=== PATIENT | male | born 1975 | race Caucasian/White ===

== ENCOUNTER 2023-03-01 19:21 | Inpatient (IN) | payer MEDICAID ==
[~2023-03-01] VITALS: Ht 188 cm; Wt 68.7 kg
[2023-03-01] MEDS ORDERED: HALOPERIDOL 5 MG TABLET PO PRN (20:00)
[2023-03-01] MEDS ORDERED: LORazepam 2 MG TABLET PO PRN (20:00)
[2023-03-01 23:42] VITALS: BP 98/62
[2023-03-02 08:01] LABS: HEMOGLOBIN A1C 5.4 % (3.8-5.6)
[2023-03-02 08:11] LABS: CHOL/HDL RATIO 2.7 (4.2-7.3)
[2023-03-02 08:19] VITALS: BP 102/66
[2023-03-02] MEDS ORDERED: LOPERAMIDE HCL 2 MG CAPSULE PO PRN (10:15)
[2023-03-02] MEDS ORDERED: ACETAMINOPHEN 325 MG TABLET PO PRN (10:15)
[2023-03-02] MEDS ORDERED: PETROLATUM,WHITE 28 GM JELLY TP PRN (10:15)
[2023-03-02] MEDS ORDERED: IBUPROFEN 400 MG TABLET PO PRN (10:15)
[2023-03-02] MEDS ORDERED: ONDANSETRON HCL 4 MG TABLET PO PRN (10:15)
[2023-03-02] MEDS ORDERED: CloNIDine HCL 0.1 MG TABLET PO PRN (10:15)
[2023-03-02] MEDS ORDERED: ALBUTEROL SULFATE HFA 90 MCG/PUFF 8 GM INHALER IH PRN (10:15)
[2023-03-02] MEDS ORDERED: NICOTINE 14 MG/24 HOUR PATCH TD PRN (10:15)
[2023-03-02] MEDS ORDERED: DOCUSATE SODIUM 100 MG CAPSULE PO PRN (10:15)
[2023-03-02] MEDS ORDERED: GuaiFENesin/D-METHORPHAN [SUGAR-FREE] 200-20MG/10 ML SYRUP UDCUP PO PRN (10:15)
[2023-03-02] MEDS ORDERED: MAGNESIUM HYDROXIDE SUSPENSION 30 ML UDCUP PO PRN (10:15)
[2023-03-02] MEDS ORDERED: MAG HYDROX/AL HYDROX/SIMETH ES 30 ML SUSPENSION UDCUP PO PRN (10:15)
[2023-03-02] MEDS: METHADONE HCL 10 MG TABLET PO SCH (12:32)
[2023-03-02] MEDS: ARIPiprazole 5 MG TABLET PO SCH (12:32)
[2023-03-02] MEDS: SERTRALINE HCL 50 MG TABLET PO SCH (12:32)
[2023-03-02 20:09] VITALS: BP 106/69
[2023-03-03 08:23] VITALS: BP 114/68
[2023-03-03] MEDS: SERTRALINE HCL 50 MG TABLET PO SCH (08:26)
[2023-03-03] MEDS: ARIPiprazole 5 MG TABLET PO SCH (08:26)
[2023-03-03] MEDS: METHADONE HCL 10 MG TABLET PO SCH (08:26)
[2023-03-03 20:40] VITALS: BP 113/67
[2023-03-04 08:30] VITALS: BP 104/69
[2023-03-04] MEDS: METHADONE HCL 10 MG TABLET PO SCH (08:31)
[2023-03-04] MEDS: ARIPiprazole 5 MG TABLET PO SCH (08:31)
[2023-03-04] MEDS: SERTRALINE HCL 50 MG TABLET PO SCH (08:31)
[2023-03-04 20:39] VITALS: BP 106/73
[2023-03-05 08:34] VITALS: BP 101/62
[2023-03-05] MEDS: ARIPiprazole 5 MG TABLET PO SCH (08:35)
[2023-03-05] MEDS: SERTRALINE HCL 50 MG TABLET PO SCH (08:35)
[2023-03-05] MEDS: METHADONE HCL 10 MG TABLET PO SCH (08:35)
[2023-03-05 20:25] VITALS: BP 108/69
[2023-03-06 08:15] VITALS: BP 107/74
[2023-03-06] MEDS: ARIPiprazole 5 MG TABLET PO SCH (08:37)
[2023-03-06] MEDS: METHADONE HCL 10 MG TABLET PO SCH (08:38)
[2023-03-06] MEDS: SERTRALINE HCL 50 MG TABLET PO SCH (08:38)
[2023-03-06 20:08] VITALS: BP 105/64
[2023-03-06 21:11] LABS: GLUCOMETER DEV NAME(LOC) POC.BV
[2023-03-06] MEDS: ZOLPIDEM TARTRATE 10 MG TABLET PO PRN (22:52)
[2023-03-07] MEDS: SERTRALINE HCL 50 MG TABLET PO SCH (08:00)
[2023-03-07] MEDS: METHADONE HCL 10 MG TABLET PO SCH (08:00)
[2023-03-07] MEDS: ARIPiprazole 5 MG TABLET PO SCH (08:01)
[2023-03-07 08:10] VITALS: BP 109/67
[2023-03-07 20:12] VITALS: BP 104/67
[2023-03-08 08:10] VITALS: BP 106/66
[2023-03-08] MEDS: METHADONE HCL 10 MG TABLET PO SCH (08:39)
[2023-03-08] MEDS: ARIPiprazole 5 MG TABLET PO SCH (08:39)
[2023-03-08] MEDS: SERTRALINE HCL 50 MG TABLET PO SCH (08:39)
[2023-03-08] MEDS ORDERED: SERTRALINE HCL 50 MG TABLET PO ONE (10:00)
[2023-03-08 20:06] VITALS: BP 102/76
[2023-03-08] MEDS: ZOLPIDEM TARTRATE 10 MG TABLET PO PRN (20:24)
[2023-03-09 08:09] VITALS: BP 109/56
[2023-03-09] MEDS: SERTRALINE HCL 50 MG TABLET PO SCH (08:17)
[2023-03-09] MEDS: ARIPiprazole 5 MG TABLET PO SCH (08:17)
[2023-03-09] MEDS: METHADONE HCL 10 MG TABLET PO SCH (08:17)
[2023-03-09 20:10] VITALS: BP 103/66
[2023-03-10] MEDS: SERTRALINE HCL 50 MG TABLET PO SCH (08:25)
[2023-03-10] MEDS: METHADONE HCL 10 MG TABLET PO SCH (08:25)
[2023-03-10] MEDS: ARIPiprazole 5 MG TABLET PO SCH (08:25)
[2023-03-10 08:26] VITALS: BP 105/61
[2023-03-10 20:35] VITALS: BP 109/59
[2023-03-11 08:43] VITALS: BP 106/66
[2023-03-11] MEDS: SERTRALINE HCL 50 MG TABLET PO SCH (09:24)
[2023-03-11] MEDS: ARIPiprazole 5 MG TABLET PO SCH (09:24)
[2023-03-11] MEDS: METHADONE HCL 10 MG TABLET PO SCH (09:25)
[2023-03-11 20:27] VITALS: BP 109/65
[2023-03-12] MEDS: METHADONE HCL 10 MG TABLET PO SCH (08:17)
[2023-03-12] MEDS: ARIPiprazole 5 MG TABLET PO SCH (08:17)
[2023-03-12] MEDS: SERTRALINE HCL 50 MG TABLET PO SCH (08:17)
[2023-03-12 08:36] VITALS: BP 109/67
[2023-03-12 20:39] VITALS: BP 108/61
[2023-03-13 07:26] LABS: GLUCOMETER DEV NAME(LOC) POC.BV
[2023-03-13 08:28] VITALS: BP 107/65
[2023-03-13] MEDS: ARIPiprazole 5 MG TABLET PO SCH (09:16)
[2023-03-13] MEDS: METHADONE HCL 10 MG TABLET PO SCH (09:19)
[2023-03-13] MEDS: SERTRALINE HCL 50 MG TABLET PO SCH (09:19)
[2023-03-13 20:12] VITALS: BP 109/58
[2023-03-14 08:34] VITALS: BP 115/75
[2023-03-14] MEDS: ARIPiprazole 5 MG TABLET PO SCH (08:38)
[2023-03-14] MEDS: SERTRALINE HCL 50 MG TABLET PO SCH (08:39)
[2023-03-14] MEDS: METHADONE HCL 10 MG TABLET PO SCH (08:39)
[2023-03-14 20:10] VITALS: BP 100/61
[2023-03-15 08:27] VITALS: BP 103/59
[2023-03-15] MEDS: ARIPiprazole 5 MG TABLET PO SCH (09:03)
[2023-03-15] MEDS: SERTRALINE HCL 50 MG TABLET PO SCH (09:03)
[2023-03-15] MEDS: METHADONE HCL 10 MG TABLET PO SCH (09:03)
[2023-03-15 20:45] VITALS: BP 100/59
[2023-03-16 08:16] VITALS: BP 109/69
[2023-03-16] MEDS: SERTRALINE HCL 100 MG TABLET PO SCH (08:59)
[2023-03-16] MEDS: ARIPiprazole 5 MG TABLET PO SCH (09:00)
[2023-03-16] MEDS: METHADONE HCL 10 MG TABLET PO SCH (09:01)
[2023-03-16 20:07] VITALS: BP 108/61
[2023-03-17 08:42] VITALS: BP 128/74
[2023-03-17] MEDS: SERTRALINE HCL 100 MG TABLET PO SCH (08:55)
[2023-03-17] MEDS: ARIPiprazole 5 MG TABLET PO SCH (08:55)
[2023-03-17] MEDS: METHADONE HCL 10 MG TABLET PO SCH (08:56)
[2023-03-17 20:24] VITALS: BP 100/66
[2023-03-18 08:26] VITALS: BP 107/62
[2023-03-18] MEDS: ARIPiprazole 5 MG TABLET PO SCH (08:40)
[2023-03-18] MEDS: METHADONE HCL 10 MG TABLET PO SCH (08:41)
[2023-03-18] MEDS: SERTRALINE HCL 100 MG TABLET PO SCH (08:41)
[2023-03-18 20:24] VITALS: BP 101/64
[2023-03-19] MEDS: ARIPiprazole 5 MG TABLET PO SCH (08:22)
[2023-03-19] MEDS: METHADONE HCL 10 MG TABLET PO SCH (08:22)
[2023-03-19] MEDS: SERTRALINE HCL 100 MG TABLET PO SCH (08:23)
[2023-03-19 08:30] VITALS: BP 103/55
[2023-03-19 20:36] VITALS: BP 101/62
[2023-03-20] MEDS: ARIPiprazole 5 MG TABLET PO SCH (08:22)
[2023-03-20] MEDS: METHADONE HCL 10 MG TABLET PO SCH (08:22)
[2023-03-20] MEDS: SERTRALINE HCL 100 MG TABLET PO SCH (08:23)
[2023-03-20 08:46] VITALS: BP 113/66
[2023-03-20 15:36] LABS: GLUCOMETER DEV NAME(LOC) POC.BV
[2023-03-20 20:34] VITALS: BP 113/70
[2023-03-21 08:32] VITALS: BP 104/65
[2023-03-21] MEDS: ARIPiprazole 5 MG TABLET PO SCH (09:44)
[2023-03-21] MEDS: SERTRALINE HCL 100 MG TABLET PO SCH (09:45)
[2023-03-21] MEDS: METHADONE HCL 10 MG TABLET PO SCH (09:49)
[2023-03-21 20:32] VITALS: BP 90/62
[2023-03-22 08:20] VITALS: BP 102/60
[2023-03-22] MEDS: SERTRALINE HCL 100 MG TABLET PO SCH (09:05)
[2023-03-22] MEDS: METHADONE HCL 10 MG TABLET PO SCH (09:06)
[2023-03-22] MEDS: ARIPiprazole 5 MG TABLET PO SCH (09:06)
[2023-03-22 20:18] VITALS: BP 108/62
[2023-03-23 08:21] VITALS: BP 100/59
[2023-03-23] MEDS: ARIPiprazole 5 MG TABLET PO SCH (08:47)
[2023-03-23] MEDS: SERTRALINE HCL 100 MG TABLET PO SCH (08:47)
[2023-03-23] MEDS: METHADONE HCL 10 MG TABLET PO SCH (08:48)
[2023-03-23 20:25] VITALS: BP 95/52
[2023-03-24 08:19] VITALS: BP 105/62
[2023-03-24] MEDS: ARIPiprazole 5 MG TABLET PO SCH (08:25)
[2023-03-24] MEDS: METHADONE HCL 10 MG TABLET PO SCH (08:26)
[2023-03-24] MEDS: SERTRALINE HCL 100 MG TABLET PO SCH (08:26)
[2023-03-24 20:40] VITALS: BP 101/49
[2023-03-25 08:25] VITALS: BP 106/60
[2023-03-25] MEDS: SERTRALINE HCL 100 MG TABLET PO SCH (09:21)
[2023-03-25] MEDS: ARIPiprazole 5 MG TABLET PO SCH (09:21)
[2023-03-25] MEDS: METHADONE HCL 10 MG TABLET PO SCH (09:23)
[2023-03-25 20:26] VITALS: BP 104/65
[2023-03-26 08:36] VITALS: BP 108/63
[2023-03-26] MEDS: ARIPiprazole 5 MG TABLET PO SCH (08:45)
[2023-03-26] MEDS: METHADONE HCL 10 MG TABLET PO SCH (08:46)
[2023-03-26] MEDS: SERTRALINE HCL 100 MG TABLET PO SCH (08:46)
[2023-03-26 20:32] VITALS: BP 95/66
[2023-03-27 08:26] VITALS: BP 103/56
[2023-03-27] MEDS: METHADONE HCL 10 MG TABLET PO SCH (09:20)
[2023-03-27] MEDS: ARIPiprazole 5 MG TABLET PO SCH (09:21)
[2023-03-27] MEDS: SERTRALINE HCL 100 MG TABLET PO SCH (09:21)
[2023-03-27 20:26] VITALS: BP 101/59
[2023-03-27 23:21] LABS: GLUCOMETER DEV NAME(LOC) POC.BV
[2023-03-28 08:33] VITALS: BP 119/58
[2023-03-28] MEDS: SERTRALINE HCL 100 MG TABLET PO SCH (09:39)
[2023-03-28] MEDS: METHADONE HCL 10 MG TABLET PO SCH (09:39)
[2023-03-28] MEDS: ARIPiprazole 5 MG TABLET PO SCH (09:39)
[2023-03-28] MEDS: MUPIROCIN CALCIUM 2% 22 GM OINTMENT NASAL SCH (17:17)
[2023-03-28 20:30] VITALS: BP 98/65
[2023-03-29 08:20] VITALS: BP 111/61
[2023-03-29] MEDS: ARIPiprazole 5 MG TABLET PO SCH (08:28)
[2023-03-29] MEDS: SERTRALINE HCL 100 MG TABLET PO SCH (08:28)
[2023-03-29] MEDS: METHADONE HCL 10 MG TABLET PO SCH (08:29)
[2023-03-29] MEDS: MUPIROCIN CALCIUM 2% 22 GM OINTMENT NASAL SCH ×2 (08:30→16:58)
[2023-03-29 20:08] VITALS: BP 102/62
[2023-03-30 08:43] VITALS: BP 113/59
[2023-03-30] MEDS: SERTRALINE HCL 100 MG TABLET PO SCH (08:45)
[2023-03-30] MEDS: ARIPiprazole 5 MG TABLET PO SCH (08:45)
[2023-03-30] MEDS: METHADONE HCL 10 MG TABLET PO SCH (08:45)
[2023-03-30] MEDS: MUPIROCIN CALCIUM 2% 22 GM OINTMENT NASAL SCH ×2 (08:47→17:07)
[2023-03-30 20:23] VITALS: BP 101/58
[2023-03-31] MEDS: ARIPiprazole 5 MG TABLET PO SCH (08:43)
[2023-03-31] MEDS: SERTRALINE HCL 100 MG TABLET PO SCH (08:44)
[2023-03-31] MEDS: METHADONE HCL 10 MG TABLET PO SCH (08:45)
[2023-03-31] MEDS: MUPIROCIN CALCIUM 2% 22 GM OINTMENT NASAL SCH ×2 (08:45→17:13)
[2023-03-31 08:54] VITALS: BP 120/80
[2023-03-31] MEDS ORDERED: ARIP5TAB37 PO (11:04)
[2023-03-31] MEDS ORDERED: SERT-440 PO (11:04)
[2023-03-31 20:13] VITALS: BP 109/58
[2023-04-01] MEDS: METHADONE HCL 10 MG TABLET PO SCH (08:29)
[2023-04-01] MEDS: ARIPiprazole 5 MG TABLET PO SCH (08:29)
[2023-04-01] MEDS: SERTRALINE HCL 100 MG TABLET PO SCH (08:29)
[2023-04-01] MEDS: MUPIROCIN CALCIUM 2% 22 GM OINTMENT NASAL SCH (08:31)
[2023-04-01 08:39] VITALS: BP 149/67
== END 2023-04-01 10:21 | disposition home or self-care (01) | DRG 751 ==
LOC: EDBD → B2S 21:54
PROVIDERS: ADMIT Psychiatry & Neurology Psychiatry; ATTEND Psychiatry & Neurology Psychiatry
DX: F33.2 Major depressive disorder, recurrent severe without psychotic features (principal); F15.10 Other stimulant abuse, uncomplicated; T40.412A Poisoning by fentanyl or fentanyl analogs, intentional self-harm, initial encounter; F41.9 Anxiety disorder, unspecified; I10 Essential (primary) hypertension; Z20.822 Contact with and (suspected) exposure to COVID-19; F19.10 Other psychoactive substance abuse, uncomplicated; Y92.89 Other specified places as the place of occurrence of the external cause; Z59.00 Homelessness unspecified; Z79.899 Other long term (current) drug therapy; Z88.0 Allergy status to penicillin; Z91.51 Personal history of suicidal behavior
CPT/HCPCS: 80061; 83036; 87081

== ENCOUNTER 2023-04-17 03:04 | Inpatient (IN) | payer MEDICAID ==
[~2023-04-17] VITALS: Ht 188 cm; Wt 69.4 kg
[~2023-04-17 03:04] MED LIST: ARIP5TAB37 PO; SERT-440 PO
[2023-04-17] MEDS ORDERED: HALOPERIDOL 5 MG TABLET PO PRN (07:00)
[2023-04-17 09:33] VITALS: BP 137/82
[2023-04-17] MEDS: LORazepam 2 MG TABLET PO PRN (10:39)
[2023-04-17] MEDS: SERTRALINE HCL 100 MG TABLET PO SCH (11:29)
[2023-04-17] MEDS: ARIPiprazole 5 MG TABLET PO SCH (11:30)
[2023-04-17] MEDS ORDERED: PNEUMOCOCCAL VACCINE POLYVALENT 0.5 ML VIAL [PPSV23] IM. ONE (12:00)
[2023-04-17] MEDS: METHADONE HCL 10 MG TABLET PO SCH (12:01)
[2023-04-17 16:18] VITALS: BP 110/64
[2023-04-17 20:09] VITALS: BP 110/64
[2023-04-18] MEDS: ARIPiprazole 5 MG TABLET PO SCH (08:03)
[2023-04-18] MEDS: SERTRALINE HCL 100 MG TABLET PO SCH (08:03)
[2023-04-18] MEDS: METHADONE HCL 10 MG TABLET PO SCH (08:03)
[2023-04-18 08:19] VITALS: BP 100/67
[2023-04-18 20:28] VITALS: BP_SYST 100; BP_SYST 108; BP_DIAS 67; BP_DIAS 77
[2023-04-19] MEDS: ARIPiprazole 5 MG TABLET PO SCH (08:13)
[2023-04-19] MEDS: SERTRALINE HCL 100 MG TABLET PO SCH (08:13)
[2023-04-19] MEDS: METHADONE HCL 10 MG TABLET PO SCH (08:14)
[2023-04-19 08:21] VITALS: BP 104/62
[2023-04-19 20:08] VITALS: BP 104/70
[2023-04-19] MEDS: LOPERAMIDE HCL 2 MG CAPSULE PO PRN (21:45)
[2023-04-19] MEDS ORDERED: ONDANSETRON HCL 4 MG TABLET PO PRN (21:45)
[2023-04-19] MEDS ORDERED: PETROLATUM,WHITE 28 GM JELLY TP PRN (21:45)
[2023-04-19] MEDS: LORazepam 2 MG TABLET PO PRN (21:45)
[2023-04-19] MEDS ORDERED: ACETAMINOPHEN 325 MG TABLET PO PRN (21:45)
[2023-04-19] MEDS ORDERED: GuaiFENesin/D-METHORPHAN [SUGAR-FREE] 200-20MG/10 ML SYRUP UDCUP PO PRN (21:45)
[2023-04-19] MEDS ORDERED: DOCUSATE SODIUM 100 MG CAPSULE PO PRN (21:45)
[2023-04-19] MEDS ORDERED: MAGNESIUM HYDROXIDE SUSPENSION 30 ML UDCUP PO PRN (21:45)
[2023-04-19] MEDS ORDERED: IBUPROFEN 400 MG TABLET PO PRN (21:45)
[2023-04-19] MEDS ORDERED: MAG HYDROX/AL HYDROX/SIMETH ES 30 ML SUSPENSION UDCUP PO PRN (21:45)
[2023-04-19] MEDS ORDERED: ALBUTEROL SULFATE HFA 90 MCG/PUFF 8 GM INHALER IH PRN (21:45)
[2023-04-19] MEDS ORDERED: CloNIDine HCL 0.1 MG TABLET PO PRN (21:45)
[2023-04-20 07:34] VITALS: BP 102/68
[2023-04-20] MEDS: SERTRALINE HCL 100 MG TABLET PO SCH (08:17)
[2023-04-20] MEDS: ARIPiprazole 5 MG TABLET PO SCH (08:18)
[2023-04-20] MEDS: LOPERAMIDE HCL 2 MG CAPSULE PO PRN (08:18)
[2023-04-20 08:49] VITALS: BP 102/68
[2023-04-20] MEDS ORDERED: METHADONE HCL 10 MG TABLET PO SCH (09:00)
[2023-04-20] MEDS: LACTOBACILLUS ACIDOPHILUS/BULGARICUS GRANULES PACKET PO SCH ×2 (09:00→17:00)
[2023-04-20 21:18] VITALS: BP 105/64
[2023-04-20] MEDS: ZOLPIDEM TARTRATE 10 MG TABLET PO PRN (21:29)
[2023-04-21 08:30] VITALS: BP 105/63
[2023-04-21] MEDS: LACTOBACILLUS ACIDOPHILUS/BULGARICUS GRANULES PACKET PO SCH ×2 (08:53→17:00)
[2023-04-21] MEDS: ARIPiprazole 5 MG TABLET PO SCH (08:54)
[2023-04-21] MEDS: METHADONE HCL 10 MG TABLET PO SCH (08:54)
[2023-04-21] MEDS: SERTRALINE HCL 100 MG TABLET PO SCH (08:54)
[2023-04-21 22:18] VITALS: BP 109/65
[2023-04-21 22:21] VITALS: BP 109/78
[2023-04-22] MEDS: LOPERAMIDE HCL 2 MG CAPSULE PO PRN (08:30)
[2023-04-22] MEDS: ARIPiprazole 5 MG TABLET PO SCH (08:30)
[2023-04-22] MEDS: SERTRALINE HCL 100 MG TABLET PO SCH (08:30)
[2023-04-22] MEDS: LACTOBACILLUS ACIDOPHILUS/BULGARICUS GRANULES PACKET PO SCH ×3 (08:30→17:41)
[2023-04-22] MEDS: METHADONE HCL 10 MG TABLET PO SCH (08:30)
[2023-04-22 08:37] VITALS: BP 110/60
[2023-04-22 20:12] VITALS: BP 111/62
[2023-04-23 08:24] VITALS: BP 95/62
[2023-04-23] MEDS: SERTRALINE HCL 100 MG TABLET PO SCH (08:32)
[2023-04-23] MEDS: METHADONE HCL 10 MG TABLET PO SCH (08:33)
[2023-04-23] MEDS: ARIPiprazole 5 MG TABLET PO SCH (08:40)
[2023-04-23] MEDS: LACTOBACILLUS ACIDOPHILUS/BULGARICUS GRANULES PACKET PO SCH ×2 (09:10→17:10)
[2023-04-23 20:29] VITALS: BP 108/62
[2023-04-24] MEDS: METHADONE HCL 10 MG TABLET PO SCH (08:17)
[2023-04-24] MEDS: SERTRALINE HCL 100 MG TABLET PO SCH (08:18)
[2023-04-24] MEDS: ARIPiprazole 5 MG TABLET PO SCH (08:18)
[2023-04-24] MEDS: LACTOBACILLUS ACIDOPHILUS/BULGARICUS GRANULES PACKET PO SCH ×2 (08:18→16:21)
[2023-04-24 08:30] VITALS: BP 100/60
[2023-04-24 20:19] VITALS: BP 102/60
[2023-04-24] MEDS: ZOLPIDEM TARTRATE 10 MG TABLET PO PRN (23:28)
[2023-04-24] MEDS: LOPERAMIDE HCL 2 MG CAPSULE PO PRN (23:28)
[2023-04-25] MEDS: ARIPiprazole 5 MG TABLET PO SCH (08:03)
[2023-04-25] MEDS: METHADONE HCL 10 MG TABLET PO SCH (08:03)
[2023-04-25] MEDS: SERTRALINE HCL 100 MG TABLET PO SCH (08:03)
[2023-04-25] MEDS: LACTOBACILLUS ACIDOPHILUS/BULGARICUS GRANULES PACKET PO SCH ×2 (08:08→17:05)
[2023-04-25 08:27] VITALS: BP 100/60
[2023-04-25 20:16] VITALS: BP 106/62
[2023-04-26 08:03] VITALS: BP 95/60
[2023-04-26] MEDS: METHADONE HCL 10 MG TABLET PO SCH (08:04)
[2023-04-26] MEDS: ARIPiprazole 5 MG TABLET PO SCH (08:04)
[2023-04-26] MEDS: SERTRALINE HCL 100 MG TABLET PO SCH (08:05)
[2023-04-26] MEDS: LACTOBACILLUS ACIDOPHILUS/BULGARICUS GRANULES PACKET PO SCH ×2 (10:22→17:06)
[2023-04-26 20:12] VITALS: BP 100/60
[2023-04-27 08:21] VITALS: BP 100/64
[2023-04-27] MEDS: SERTRALINE HCL 100 MG TABLET PO SCH (08:22)
[2023-04-27] MEDS: ARIPiprazole 5 MG TABLET PO SCH (08:22)
[2023-04-27] MEDS: LACTOBACILLUS ACIDOPHILUS/BULGARICUS GRANULES PACKET PO SCH ×2 (08:23→16:42)
[2023-04-27] MEDS: METHADONE HCL 10 MG TABLET PO SCH (08:23)
[2023-04-28 08:20] VITALS: BP 99/62
[2023-04-28] MEDS: ARIPiprazole 5 MG TABLET PO SCH (08:20)
[2023-04-28] MEDS: METHADONE HCL 10 MG TABLET PO SCH (08:20)
[2023-04-28] MEDS: SERTRALINE HCL 100 MG TABLET PO SCH (08:21)
[2023-04-28] MEDS: LACTOBACILLUS ACIDOPHILUS/BULGARICUS GRANULES PACKET PO SCH ×2 (08:21→16:44)
[2023-04-28 20:18] VITALS: BP 104/62
[2023-04-29] MEDS: LACTOBACILLUS ACIDOPHILUS/BULGARICUS GRANULES PACKET PO SCH ×3 (09:00→16:50)
[2023-04-29 09:31] VITALS: BP 90/56
[2023-04-29] MEDS: SERTRALINE HCL 100 MG TABLET PO SCH (09:34)
[2023-04-29] MEDS: ARIPiprazole 5 MG TABLET PO SCH (09:39)
[2023-04-29] MEDS: METHADONE HCL 10 MG TABLET PO SCH (09:40)
[2023-04-29 21:06] LABS: OVA AND PARASITES EXAM Final report
[2023-04-29 22:17] VITALS: BP 105/68
[2023-04-30 08:28] VITALS: BP 107/61
[2023-04-30] MEDS: SERTRALINE HCL 100 MG TABLET PO SCH (09:07)
[2023-04-30] MEDS: ARIPiprazole 5 MG TABLET PO SCH (09:08)
[2023-04-30] MEDS: METHADONE HCL 10 MG TABLET PO SCH (09:09)
[2023-04-30 20:37] VITALS: BP 103/65
[2023-05-01 08:19] VITALS: BP 113/55
[2023-05-01] MEDS: ARIPiprazole 5 MG TABLET PO SCH (10:00)
[2023-05-01] MEDS: SERTRALINE HCL 100 MG TABLET PO SCH (10:01)
[2023-05-01] MEDS: METHADONE HCL 10 MG TABLET PO SCH (10:08)
[2023-05-01] MEDS ORDERED: SERT-440 PO (13:55)
[2023-05-01] MEDS ORDERED: ARIP5TAB37 PO (13:55)
== END 2023-05-01 16:30 | disposition home or self-care (01) | DRG 751 ==
LOC: B3A 08:44 → B2S 04-28 13:55
PROVIDERS: ADMIT Psychiatry & Neurology Psychiatry; ATTEND Psychiatry & Neurology Psychiatry
DX: F33.2 Major depressive disorder, recurrent severe without psychotic features (principal); F11.10 Opioid abuse, uncomplicated; F12.10 Cannabis abuse, uncomplicated; F15.10 Other stimulant abuse, uncomplicated; F41.9 Anxiety disorder, unspecified; G47.00 Insomnia, unspecified; T40.412A Poisoning by fentanyl or fentanyl analogs, intentional self-harm, initial encounter; Y92.89 Other specified places as the place of occurrence of the external cause; Z28.21 Immunization not carried out because of patient refusal; Z79.899 Other long term (current) drug therapy; Z88.0 Allergy status to penicillin; Z91.51 Personal history of suicidal behavior
CPT/HCPCS: 87045; 87081; 87177; Q0162

== ENCOUNTER 2023-09-22 22:54 | Inpatient (IN) | payer MEDICAID ==
[~2023-09-22] VITALS: Ht 188 cm; Wt 77.7 kg
[2023-09-23] MEDS ORDERED: HALOPERIDOL 5 MG TABLET PO PRN
[2023-09-23] MEDS ORDERED: LORazepam 2 MG TABLET PO PRN
[2023-09-23] MEDS ORDERED: INFLUENZA VIRUS VACCINE QVS 2023-24 (6MO+)/PF 60 MCG/0.5 ML SYRINGE IM. ONE (03:00)
[2023-09-23] MEDS ORDERED: PNEUMOCOCCAL VACCINE POLYVALENT 0.5 ML SYRINGE [PPSV23] IM. ONE (03:00)
[2023-09-23 08:44] LABS: BASOPHILS % (AUTO) 1.5 % (0.0-2.0); EOSINOPHILS % (AUTO) 4.8 % (1.0-6.0); HEMATOCRIT 37.8 % (41-53); HEMOGLOBIN 13.2 g/dL (13.5-17.5); LYMPHOCYTES % (AUTO) 24.5 % (22.0-44.0); MEAN CORPUSCULAR HEMOGLOBIN 31.4 pg (26.0-34.0); MEAN CORPUSCULAR HGB CONC 34.9 G/dL (31.0-37.0); MEAN CORPUSCULAR VOLUME 90 fL (80-100); MONOCYTES # (AUTO) 0.5 K/uL (0.1-1.0); MONOCYTES % (AUTO) 11.1 % (2.0-9.0); NEUTROPHILS # (AUTO) 2.4 K/uL (1.8-7.7); NEUTROPHILS % (AUTO) 58.1 % (40.0-70.0); PLATELET COUNT (AUTO) 250 K/uL (150-450); RED CELL DISTRIBUTION WIDTH 13.9 % (11.5-14.5); WHITE BLOOD COUNT (AUTO) 4.1 K/uL (4.5-11.0)
[2023-09-23 08:59] LABS: HEMOGLOBIN A1C 5.1 % (3.8-5.6)
[2023-09-23 09:09] LABS: ALANINE AMINOTRANSFERASE 22 U/L (12-78); ALBUMIN 3.8 g/dL (3.4-5.0); ALKALINE PHOSPHATASE 78 U/L (46-116); ANION GAP 6 mmol/L (8-16); ASPARTATE AMINOTRANSFERASE 15 U/L (15-37); BILIRUBIN,TOTAL 0.4 mg/dL (0.1-1.0); CALCIUM, TOTAL 8.8 mg/dL (8.8-10.5); CARBON DIOXIDE 33 mmol/L (22-29); CHLORIDE 99 mmol/L (98-107); CHOLESTEROL 118 mg/dL (131-200); CREATININE 1.08 mg/dL (0.60-1.30); FREE T4 (FREE THYROXINE) 1.13 ng/dL (0.76-1.46); GLOMERULAR FILTR. RATE CALC > 60 mL/min (>60); GLUCOSE,RANDOM 103 mg/dL (70-110); HDL CHOLESTEROL 39 mg/dL (40-60); LDL CHOL (CALC.) 62 mg/dL (0-130); POTASSIUM 3.6 mmol/L (3.5-5.1); SODIUM SERUM 138 mmol/L (136-145); THYROID STIMULATING HORMONE 1.87 uIU/mL (0.36-3.74); TOTAL PROTEIN, SERUM 7.4 g/dL (6.4-8.2); TRIGLYCERIDES 85 mg/dL (15-150); UREA NITROGEN, BLOOD 17 mg/dL (7-18)
[2023-09-24 02:34] VITALS: BP 110/70; PULSE 78; RESP 18; TEMP 96.3; O2SAT 98
[2023-09-24] MEDS ORDERED: BACITRACIN 28 GM OINTMENT TP PRN (05:45)
[2023-09-24] MEDS ORDERED: MAGNESIUM HYDROXIDE SUSPENSION 30 ML UDCUP PO PRN (05:45)
[2023-09-24] MEDS ORDERED: ONDANSETRON HCL 4 MG TABLET PO PRN (05:45)
[2023-09-24] MEDS ORDERED: ALBUTEROL SULFATE HFA 90 MCG/PUFF 8 GM INHALER IH PRN (05:45)
[2023-09-24] MEDS ORDERED: PETROLATUM,WHITE 28 GM JELLY TP PRN (05:45)
[2023-09-24] MEDS ORDERED: MAG HYDROX/ALUMINUM HYD/SIMETH ES 30 ML SUSPENSION UDCUP PO PRN (05:45)
[2023-09-24] MEDS ORDERED: ACETAMINOPHEN 325 MG TABLET PO PRN (05:45)
[2023-09-24] MEDS ORDERED: BENZOCAINE/MENTHOL LOZENGE PO PRN (05:45)
[2023-09-24] MEDS ORDERED: OMEPRAZOLE 20 MG CAPSULE PO PRN (05:45)
[2023-09-24] MEDS ORDERED: CloNIDine HCL 0.1 MG TABLET PO PRN (05:45)
[2023-09-24] MEDS ORDERED: DOCUSATE SODIUM 100 MG CAPSULE PO PRN (05:45)
[2023-09-24] MEDS ORDERED: LOPERAMIDE HCL 2 MG CAPSULE PO PRN (05:45)
[2023-09-24 12:22] VITALS: BP 91/59; PULSE 87; RESP 16; TEMP 98.6; O2SAT 97
[2023-09-24 22:11] VITALS: BP 100/62; PULSE 84; RESP 17; TEMP 98.7; O2SAT 96
[2023-09-25 08:00] VITALS: BP 101/64; PULSE 78; RESP 16; TEMP 98; O2SAT 98
[2023-09-25] MEDS: ARIPiprazole 5 MG TABLET PO SCH (10:11)
[2023-09-25] MEDS: BUPRENORPHINE HCL/NALOXONE HCL 8-2 MG SUBLINGUAL TABLET SL SCH (17:24)
[2023-09-25 20:42] VITALS: BP 106/72; PULSE 89; RESP 18; TEMP 97.9; O2SAT 98
[2023-09-26 08:00] VITALS: BP 98/60; PULSE 83; RESP 18; TEMP 98.4
[2023-09-26] MEDS: BUPRENORPHINE HCL/NALOXONE HCL 8-2 MG SUBLINGUAL TABLET SL SCH ×2 (10:22→18:03)
[2023-09-26] MEDS: ARIPiprazole 5 MG TABLET PO SCH (10:22)
[2023-09-26 20:10] VITALS: BP 109/73; PULSE 80; RESP 18; TEMP 98.2; O2SAT 97
[2023-09-26 23:00] VITALS: BP 114/72; PULSE 77; RESP 18; TEMP 97.9
[2023-09-26] MEDS: ZOLPIDEM TARTRATE 10 MG TABLET PO PRN (23:04)
[2023-09-27] MEDS: BUPRENORPHINE HCL/NALOXONE HCL 8-2 MG SUBLINGUAL TABLET SL SCH ×2 (09:46→17:25)
[2023-09-27] MEDS: ARIPiprazole 5 MG TABLET PO SCH (09:46)
[2023-09-27 09:56] VITALS: BP 106/57; PULSE 69; RESP 18; TEMP 97.7; O2SAT 100
[2023-09-27] MEDS: IBUPROFEN 600 MG TABLET PO PRN (12:51)
[2023-09-27] MEDS ORDERED: ARIP5TAB37 PO (16:29)
[2023-09-27 20:41] VITALS: BP 104/71; PULSE 68; RESP 18; TEMP 98.5; O2SAT 98
[2023-09-28 08:40] VITALS: BP 103/59; PULSE 67; RESP 16; TEMP 98; O2SAT 99
[2023-09-28] MEDS: ARIPiprazole 5 MG TABLET PO SCH (08:45)
[2023-09-28] MEDS: BUPRENORPHINE HCL/NALOXONE HCL 8-2 MG SUBLINGUAL TABLET SL SCH ×2 (08:45→16:53)
[2023-09-28] MEDS: IBUPROFEN 600 MG TABLET PO PRN (08:45)
[2023-09-28 20:00] VITALS: BP 109/62; PULSE 69; RESP 18; TEMP 97.8
[2023-09-28] MEDS: ZOLPIDEM TARTRATE 10 MG TABLET PO PRN (21:24)
[2023-09-28 22:53] VITALS: BP 112/74; PULSE 72; RESP 19; TEMP 97.2; O2SAT 98
[2023-09-29] MEDS: BUPRENORPHINE HCL/NALOXONE HCL 8-2 MG SUBLINGUAL TABLET SL SCH ×2 (08:02→16:43)
[2023-09-29] MEDS: ARIPiprazole 5 MG TABLET PO SCH (08:03)
[2023-09-29 08:19] VITALS: BP 99/75; PULSE 89; RESP 17; TEMP 98; O2SAT 98
[2023-09-29] MEDS: IBUPROFEN 600 MG TABLET PO PRN (08:36)
[2023-09-29 09:36] VITALS: RESP 16
[2023-09-29] MEDS: ZOLPIDEM TARTRATE 10 MG TABLET PO PRN (20:33)
[2023-09-29 22:03] VITALS: BP 99/63; PULSE 56; RESP 17; TEMP 97.4; O2SAT 98
[2023-09-30] MEDS: BUPRENORPHINE HCL/NALOXONE HCL 8-2 MG SUBLINGUAL TABLET SL SCH ×2 (09:33→16:40)
[2023-09-30] MEDS: ARIPiprazole 5 MG TABLET PO SCH (09:33)
[2023-09-30 09:35] VITALS: BP 116/65; PULSE 68; RESP 17; TEMP 97.7; O2SAT 99
[2023-09-30] MEDS: IBUPROFEN 600 MG TABLET PO PRN (09:39)
[2023-09-30] MEDS: ZOLPIDEM TARTRATE 10 MG TABLET PO PRN (22:03)
[2023-09-30 23:44] VITALS: BP 117/75; PULSE 75; RESP 18; TEMP 97.7; O2SAT 98
[2023-10-01] MEDS: BUPRENORPHINE HCL/NALOXONE HCL 8-2 MG SUBLINGUAL TABLET SL SCH (08:56)
[2023-10-01] MEDS: ARIPiprazole 5 MG TABLET PO SCH (08:56)
[2023-10-01 11:13] VITALS: BP 113/81; PULSE 77; RESP 18; TEMP 99; O2SAT 99
== END 2023-10-01 16:34 | disposition home or self-care (01) | DRG 750 ==
LOC: 3EI 09-23 22:36
PROVIDERS: ADMIT Psychiatry & Neurology Psychiatry; ATTEND Psychiatry & Neurology Psychiatry
DX: F25.9 Schizoaffective disorder, unspecified (principal); R45.851 Suicidal ideations; G47.00 Insomnia, unspecified; K59.00 Constipation, unspecified; F41.9 Anxiety disorder, unspecified
CPT/HCPCS: 80053; 80061; 83036; 84439; 84443; 85025; 90686; 90732

== ENCOUNTER 2023-09-23 00:35 | Emergency (ER) | payer MEDICAID, OTHER ==
[~2023-09-23] VITALS: Ht 188 cm; Wt 75.0 kg
[2023-09-23 00:51] VITALS: TEMP 98
[2023-09-23 01:15] LABS: COVID AG,FIA SOURCE NASAL SWAB
[2023-09-23 01:18] LABS: BASOPHILS % (AUTO) 0.6 % (0.0-2.0); EOSINOPHILS % (AUTO) 3.9 % (1.0-6.0); HEMATOCRIT 38.6 % (41-53); HEMOGLOBIN 13.2 g/dL (13.5-17.5); LYMPHOCYTES % (AUTO) 17.1 % (22.0-44.0); MEAN CORPUSCULAR HEMOGLOBIN 30.8 pg (26.0-34.0); MEAN CORPUSCULAR HGB CONC 34.1 G/dL (31.0-37.0); MEAN CORPUSCULAR VOLUME 90 fL (80-100); MONOCYTES # (AUTO) 0.6 K/uL (0.1-1.0); MONOCYTES % (AUTO) 10.7 % (2.0-9.0); NEUTROPHILS % (AUTO) 67.7 % (40.0-70.0); PLATELET COUNT (AUTO) 276 K/uL (150-450); RED BLOOD CELL COUNT(AUTO) 4.27 MIL/uL (4.50-5.90); RED CELL DISTRIBUTION WIDTH 14.3 % (11.5-14.5); WHITE BLOOD COUNT (AUTO) 5.9 K/uL (4.5-11.0)
[2023-09-23 01:32] LABS: ALANINE AMINOTRANSFERASE 20 U/L (12-78); ALBUMIN 4.3 g/dL (3.4-5.0); ALKALINE PHOSPHATASE 79 U/L (46-116); ANION GAP 8 mmol/L (8-16); ASPARTATE AMINOTRANSFERASE 13 U/L (15-37); BILIRUBIN,TOTAL 0.5 mg/dL (0.1-1.0); CALCIUM, TOTAL 9.4 mg/dL (8.8-10.5); CARBON DIOXIDE 31 mmol/L (22-29); CHLORIDE 99 mmol/L (98-107); CREATININE 1.18 mg/dL (0.60-1.30); GLOMERULAR FILTR. RATE CALC > 60 mL/min (>60); GLUCOSE,RANDOM 99 mg/dL (70-110); SODIUM SERUM 138 mmol/L (136-145); TOTAL PROTEIN, SERUM 7.9 g/dL (6.4-8.2); UREA NITROGEN, BLOOD 19 mg/dL (7-18)
[2023-09-23 01:35] LABS: ALCOHOL, BLOOD (SERUM) < 3 mg/dL (0-10)
[2023-09-23 01:37] LABS: POTASSIUM 2.9 mmol/L (3.5-5.1)
[2023-09-23 01:40] LABS: SARS-COV2 (COVID) ANTIGEN,FIA Negative (Negative)
[2023-09-23] MEDS ORDERED: POTASSIUM CHLORIDE 20 MEQ ER TABLET PO ONE (01:45)
[2023-09-23 03:19] LABS: PH,URINE DRUG SCREEN 5.5 (5.0-8.0)
[2023-09-23 03:23] LABS: ALCOHOL, URINE DRUG SCREEN NEGATIVE (NEGATIVE); AMPHET/METH SCREEN,URINE POSITIVE (NEGATIVE); BARBITURATE SCREEN, URINE NEGATIVE (NEGATIVE); BENZODIAZEPINES SCREEN,URINE NEGATIVE (NEGATIVE); CANNABINOID SCREEN,URINE NEGATIVE (NEGATIVE); COCAINE SCREEN,URINE NEGATIVE (NEGATIVE); METHADONE SCREEN, URINE NEGATIVE (NEGATIVE); OPIATE SCREEN,URINE NEGATIVE (NEGATIVE); PHENCYCLIDINE SCREEN,URINE NEGATIVE (NEGATIVE)
[2023-09-23] MEDS ORDERED: IBUPROFEN 600 MG TABLET PO ONE (09:15)
[2023-09-24 01:49] VITALS: BP 115/78; PULSE 71; RESP 16
== END 2023-09-24 01:42 | disposition home or self-care (01) ==
LOC: EMS 00:37 → UNDOADMIN 22:57 → 3EI 22:57 → EMS 09-24 01:42
DX: F32.9 Major depressive disorder, single episode, unspecified (principal); F41.9 Anxiety disorder, unspecified; I10 Essential (primary) hypertension; F17.210 Nicotine dependence, cigarettes, uncomplicated; F12.90 Cannabis use, unspecified, uncomplicated; F15.90 Other stimulant use, unspecified, uncomplicated; Z98.890 Other specified postprocedural states; Z04.6 Encounter for general psychiatric examination, requested by authority; Z20.822 Contact with and (suspected) exposure to COVID-19
CPT/HCPCS: 99283; 87426; 80053; 85025; 36415; 80307; G0480; 99285